=== PATIENT | male | born 1940 | race Caucasian/White ===

== ENCOUNTER 2023-06-09 21:00 | Emergency (ER) | payer MEDICARE, SELFPAY ==
[2023-06-09 21:20] VITALS: BP 108/41; PULSE 56; RESP 12; TEMP 36.5; O2SAT 94; BMI 26.6
--- NOTE | 2023-06-09 22:55 | ED.MALEGU ---
HPI - Male Genitourinary General Chief complaint: Urogenital-Male Stated complaint: ?UTI Time Seen by Provider: 06/09/23 22:55 Source: patient Mode of arrival: ambulatory Limitations: no limitations History of Present Illness HPI Narrative: Patient complaining of dysuria frequency for last few hours does not get infections very often no fever no nausea no vomiting had some chills at home no abdominal pain no issues with prostate Related Data Previous Rx's Medication Instructions Recorded cefuroxime axetil 250 mg tablet 250 mg PO BID 7 days #14 tabs 06/10/23 phenazopyridine 200 mg tablet 200 mg PO TID 2 days #5 tabs 06/10/23 (Pyridium) Allergies Allergy/AdvReac Type Severity Reaction Status Date / Time No Known Allergies Allergy Verified 06/09/23 21:20 Review of Systems Review of Systems: Yes all other systems are reviewed and are negative [facility] Social History Social History Alcohol intake: current Alcohol intake frequency: 0-2 drinks per day Alcohol type: beer Smoked in Last 30 Days: No Use of substances other than those prescribed or required for medical reasons: No Advance Directives: No Advance Directives Information Provided: Yes Physical Exam Vital Signs: Vital Signs: Last Vital Signs Temp 97.8 F 06/10/23 00:04 Pulse 59 06/10/23 00:04 Resp 16 06/10/23 00:04 BP 126/58 L 06/10/23 00:14 Pulse Ox 98 06/10/23 00:04 O2 Del Method Room Air 06/10/23 00:04 BMI result Body Mass Index 26.6 Appearance: Alert. Oriented X3. No acute distress. Hard of hearing ENT: Pharynx normal. Oral Mucosa moist Neck: Normal inspection. Neck supple. CVS: Normal heart rate and rhythm. Pulses normal. Respiratory: No respiratory distress. Equal air entry bilateral, Abdomen: Soft and nontender. Bowel sounds are present, no mass palpable, no CVA tenderness Skin: Skin warm and dry. Normal skin color. Normal skin turgor. Extremities: No lower extremity edema. Neuro: Oriented X 3. Medications Administered Discontinued Medications Generic Name Dose Route Start Last Admin Trade Name Freq PRN Reason Stop Dose Admin Cefuroxime Axetil 500 mg 06/09/23 23:21 06/10/23 00:03 Cefuroxime Axetil 500 Mg Tablet PO 06/09/23 23:22 500 mg ONCE ONE Administration Phenazopyridine HCl 200 mg 06/09/23 23:21 06/10/23 00:03 Phenazopyridine Hcl 200 Mg Tablet PO 06/09/23 23:22 200 mg ONCE ONE Administration Medical Decision Making Medical Decision Making [facility] Narrative: Patient has uncomplicated UTI with no history of infection in the past had stable labs which were done last week per family no history of kidney disease urine showed UTI will start on Ceftin and Pyridium patient does not have prostate issues Differential Diagnosis Differential Diagnoses: The differential diagnosis associated with the presentation includes UTI/prostatitis Lab Data [facility] Lab Attestation statement: I reviewed the patient's lab results. Labs: Lab Results 06/10/23 Range/Units 00:01 Urine Color Yellow Urine Appearance Cloudy Urine pH 5.5 (5.0-9.0) Ur Specific [place] 1.010 (1.005-1.025) Urine Protein 30 (1+) H (Neg-Trace) mg/dL Urine Glucose (UA) Negative (Negative) mg/dL Urine Ketones Negative (Negative) mg/dL Urine Blood Large (3+) H (Negative) Urine Nitrite Negative (Negative) Ur Leukocyte Esterase Large (3+) H (Negative) Urine RBC >20 H (0-2) /HPF Urine WBC >50 H (0-5) /HPF Ur Squamous Epith Cells 0-2 (0-2) /HPF Urine Bacteria None Seen (None Seen) Hyaline Casts 3-5 (0-2) /LPF Discharge Plan Discharge Clinical Impression: Urinary tract infection Patient Disposition: Home, Self-Care Instructions: Urinary Tract Infection in Men (ED) Additional Instructions: Drink plenty of fluid Take antibiotics as prescribed Report to the ER if high fever/vomiting/flank pain Prescriptions: New cefuroxime axetil 250 mg tablet 250 mg PO BID 7 Days Qty: 14 0RF phenazopyridine [Pyridium] 200 mg tablet 200 mg PO TID 2 Days Qty: 5 0RF Interventions: ED Discharge Assessment Last Done: 06/10/23 01:07 Discharge Date/Time: 06/10/23 01:08
[2023-06-10] MEDS: cefuroxime axetiL 500 MG TABLET PO (00:03)
[2023-06-10] MEDS: Phenazopyridine HCL 200 MG TABLET PO (00:03)
[2023-06-10 00:04] VITALS: BP 134/30; PULSE 59; RESP 16; TEMP 36.6; O2SAT 98
[2023-06-10 00:14] VITALS: BP 126/58
[2023-06-10 00:35] LABS: Appearance Urine Cloudy; Color Urine Yellow; Glucose Urine UA Negative (Negative); Leukocyte Esterase Urine Large (3+) (Negative); Nitrite Urine Negative (Negative); PH 5.5 (5.0-9.0); UMIC TRIGGER UACC YES; Urine Blood Large (3+) (Negative); Urine Ketones Negative (Negative); Urine Protein 30 (1+) mg/dL (Neg-Trace)
[2023-06-10 00:50] LABS: Bacteria Urine None Seen (None Seen); RBC Urine >20 /HPF (0-2); Squamous Epithelial Cell Urine 0-2 /HPF (0-2); UACC Culture Trigger YES; WBC Urine >50 /HPF (0-5)
== END 2023-06-10 01:08 | disposition home or self-care (01) ==
PROVIDERS: Emergency Provider Internal Medicine; PCP Hospitalist
DX: N39.0 Urinary tract infection, site not specified (principal)
CPT/HCPCS: 81001; 87086; 99283; 99284

== ENCOUNTER 2024-09-15 22:17 | Emergency (ER) | payer MEDICARE, SELFPAY ==
[2024-09-15 22:21] VITALS: BP 141/56; PULSE 63; RESP 22; TEMP 36.6; O2SAT 97; BMI 24.0
[2024-09-15 22:52] VITALS: BP 183/70; PULSE 54; RESP 19; O2SAT 99
[2024-09-15 23:14] LABS: MANUAL DIFF FLAG NO
[2024-09-15 23:15] LABS: Basophils Percent Auto 0.6 % (0-2); Eosinophils Absolute Auto 0.1 X10*3/uL (0.0-0.4); Eosinophils Percent Auto 0.9 % (0-4); Hematocrit 35.7 % (42.0-52.0); Hemoglobin 11.9 g/dl (14.0-18.0); Imm Gran Abs Auto 0.01 X10*3/uL (0.00-0.03); Imm Gran Pct Auto 0.2 % (0.0-0.4); Lymphocytes Absolute Auto 0.8 X10*3/uL (1.2-4.9); Lymphocytes Percent Auto 13.8 % (20-40); Mean Corpuscular HGB Conc 33.3 g/dl (31.0-36.0); Mean Corpuscular Hemoglobin 28.3 pg (27.0-33.0); Mean Corpuscular Volume 84.8 fL (80.0-98.0); Monocytes Absolute Auto 0.7 X10*3/uL (0.1-1.2); Monocytes Percent Auto 12.5 % (2-11); Neutrophils Absolute Auto 3.9 x10*3/uL (2.0-8.3); Platelet Count 105 X10*3/uL (160-400); Red Blood Count 4.21 X10*6/uL (4.60-5.80); Red Cell Distribution Width 14.6 % (11.0-16.0); White Blood Count 5.5 X10*3/uL (4.8-10.8)
--- NOTE | 2024-09-15 23:20 | ED_ITS ---
HPI - Medical Clearance General Chief complaint: Medical Clearance Stated complaint: withdrawal symptoms Time Seen by Provider: 09/15/24 23:19 Source: patient Mode of arrival: ambulatory Limitations: no limitations History of Present Illness ED Provider: HPI Narrative: Patient alcoholic stop drinking alcohol 1 week ago cold turkey certain feeling more anxious patient does have history of anxiety taking alprazolam 0.5 mg 3 times a day which is not even helping him patient is unable to ambulate because of tremulous feeling unable to sleep denies any DTs or seizures Related Information Home Medications ?Medication ?Instructions ?Recorded ?Confirmed alprazolam 0.5 mg tablet 0.5 mg PO BID 09/16/24 09/16/24 clopidogrel 75 mg tablet 75 mg PO DAILY 09/16/24 09/16/24 finasteride 5 mg tablet 5 mg PO DAILY 09/16/24 09/16/24 furosemide 40 mg tablet 40 mg PO DAILY 09/16/24 09/16/24 lactulose 10 gram/15 mL oral 15 ml PO DAILY 09/16/24 09/16/24 solution pantoprazole 40 mg tablet,delayed 40 mg PO BID 09/16/24 09/16/24 release sertraline 100 mg tablet 100 mg PO BID 09/16/24 09/16/24 simvastatin 20 mg tablet 20 mg PO BEDTIME 09/16/24 09/16/24 trazodone 50 mg tablet 50 mg PO BEDTIME 09/16/24 09/16/24 Previous Rx's ?Medication ?Instructions ?Recorded chlordiazepoxide HCl 10 mg capsule 10 mg PO TID PRN withdrawal 09/16/24 symptoms 2 days #6 caps Allergies Allergy/AdvReac Type Severity Reaction Status Date / Time No Known Allergies Allergy Verified 09/15/24 22:30 Review of Systems 2 Review of Systems: Yes all other systems are reviewed and are negative PMFSH Social History Social History Alcohol intake: current Alcohol intake frequency: 3 or more drinks per day Alcohol type: beer and wine Use of substances other than those prescribed or required for medical reasons: No Advance Directives: No Advance Directives Information Provided: No Physical Exam 2 Vital Signs: Vital Signs: Last Vital Signs Temp 98.6 F 09/16/24 07:23 Pulse 51 09/16/24 07:23 Resp 15 09/16/24 07:23 BP 155/59 H 09/16/24 07:23 Pulse Ox 98 09/16/24 07:23 O2 Del Method Room Air 09/16/24 07:23 BMI result Body Mass Index 24.0 Appearance: Alert. Oriented X3. No acute distress. Tremulous anxious Eyes: PERRLA, No Nystagmus ENT: Pharynx normal. Oral Mucosa moist Neck: Normal inspection. Neck supple. CVS: Normal heart rate and rhythm. Pulses normal. Respiratory: No respiratory distress. Equal air entry bilateral, no wheezing/rales/rhonchi Abdomen: Soft and nontender. Bowel sounds are present, no mass palpable, no CVA tenderness Skin: Skin warm and dry. Normal skin color. Normal skin turgor. Extremities: No lower extremity edema. No calf tenderness Neuro: Oriented X 3. No motor deficit. No sensory deficit.No cerebellar signs , cranial nerves II-XII intact Medications Administered Discontinued Medications Generic Name Dose Route Start Last Admin Trade Name Freq PRN Reason Stop Dose Admin Sodium Chloride 1,000 mls @ 999 mls/hr 09/15/24 23:42 09/16/24 01:30 Ns IV 09/16/24 00:42 Infused .Q1H1M ONE Infusion Lorazepam 2 mg 09/15/24 23:41 09/16/24 00:04 Lorazepam 1 Mg Tablet PO 09/15/24 23:42 2 mg ONCE ONE Administration Thiamine HCl 50 mg 09/15/24 23:42 09/16/24 00:04 Thiamine Hcl 100 Mg Tablet PO 09/15/24 23:43 50 mg ONCE ONE Administration Medical Decision Making Medical Decision Making [facility] Narrative: Patient with anxiety alcohol use last drink 6 days ago still feel very anxious already on alprazolam at home family wants detox/psych evaluation for increased anxiety patient has says that has increased stress level at home for last 6 months and maybe contributing to his increased anxiety 08:43I, Dr. Emerson have take over the care of this patient, I reviewed pertinent blood work and imaging, re-evaluated the patient when appropriate., cleared from crisis, currently not really detoxing but anxious last drink 6 days ago, not indicated for medical detox, we will prescribe a few days' worth of benzodiazepines for discharge and will follow up with the PCP Differential Diagnosis Differential Diagnoses: The differential diagnosis associated with the presentation includes Lab Data [facility] Lab Attestation statement: I reviewed the patient's lab results. 09/15/24 23:06 09/15/24 23:06 Labs: Lab Results 09/15/24 09/15/24 09/16/24 Range/Units 23:06 23:08 00:21 WBC 5.5 (4.8-10.8) X10*3/uL RBC 4.21 L (4.60-5.80) X10*6/uL Hgb 11.9 L (14.0-18.0) g/dl Hct 35.7 L (42.0-52.0) % MCV 84.8 (80.0-98.0) fL MCH 28.3 (27.0-33.0) pg MCHC 33.3 (31.0-36.0) g/dl RDW 14.6 (11.0-16.0) % Plt Count 105 L (160-400) X10*3/uL MPV 12.0 (9.4-12.4) fL Immature Gran % (Auto) 0.2 (0.0-0.4) % Neut % (Auto) 72.0 (45-73) % Lymph % (Auto) 13.8 L (20-40) % [place] % (Auto) 12.5 H (2-11) % Eos % (Auto) 0.9 (0-4) % Baso % (Auto) 0.6 (0-2) % Lymph # (Auto) 0.8 L (1.2-4.9) X10*3/uL [place] # (Auto) 0.7 (0.1-1.2) X10*3/uL Eos # (Auto) 0.1 (0.0-0.4) X10*3/uL Baso # (Auto) 0.0 (0.0-0.2) X10*3/uL Abs Immat Gran (auto) 0.01 (0.00-0.03) X10*3/uL Absolute Neuts (auto) 3.9 (2.0-8.3) x10*3/uL Absolute Nucleated RBC 0.000 (0.0-0.012) X10*3/uL Nucleated RBC % (auto) 0.0 (0.0-0.2) /100WBC Sodium 145 (135-145) mmol/L Potassium 3.9 (3.3-5.1) mmol/L Chloride 110 H (96-108) mmol/L Carbon Dioxide 24 (22-29) mmol/L Anion Gap 15 (12-20) BUN 33 H (9-16) mg/dL Creatinine 1.33 (0.5-1.4) mg/dL Estim Creat Clear Calc 40.0 Estimated GFR 51 Random Glucose 108 (60-115) mg/dL Calcium 9.9 (8.4-10.2) mg/dL Magnesium 2.3 (1.6-2.6) mg/dL Total Bilirubin 0.3 (0.0-1.0) mg/dL AST 21 (5-37) U/L ALT 14 (0-40) U/L Alkaline Phosphatase 65 (39-117) U/L Total Protein 7.8 (6.5-8.0) g/dL Albumin 5.0 (3.5-5.0) g/dL Vitamin B12 347 (200-900) pg/mL Folate 12.4 (> or = 4.0) ng/mL Urine Color Yellow Urine Appearance Clear Urine pH 6.5 (5.0-9.0) Ur Specific [place] 1.015 (1.005-1.025) Urine Protein Negative (Neg-Trace) mg/dL Urine Glucose (UA) Negative (Negative) mg/dL Urine Ketones Negative (Negative) mg/dL Urine Blood Negative (Negative) Urine Nitrite Negative (Negative) Ur Leukocyte Esterase Negative (Negative) Urine RBC 0-2 (0-2) /HPF Urine WBC 0-5 (0-5) /HPF Ur Squamous Epith Cells 0-2 (0-2) /HPF Urine Bacteria None Seen (None Seen) Hyaline Casts 11-20 (0-2) /LPF Urine Opiates Screen Not Detected (Not Detect) Ur Buprenorphine Scrn Not Detected (Not Detect) ng/mL Ur Oxycodone Screen Not Detected (Not Detect) ng/mL Urine Methadone Screen Not Detected (Not Detect) ng/mL Urine Fentanyl Screen Not Detected (Not Detect) Ur Barbiturates Screen Not Detected (Not Detect) Ur Phencyclidine Scrn Not Detected (Not Detect) Ur Amphetamines Screen Not Detected (Not Detect) U Benzodiazepines Scrn POSITIVE H (Not Detect) Urine Cocaine Screen Not Detected (Not Detect) U Marijuana (THC) Screen Not Detected (Not Detect) Ethyl Alcohol < 10 mg/dL Discharge Plan Discharge Clinical Impression: Alcohol withdrawal, Anxiety Patient Disposition: Still a Patient Additional Instructions: You have taken benzodiazepines in the past, medication provide any Librium 10 mg you can take every 8 hours needed for withdrawal like symptoms anxiety, it is a longer acting medication, you can take either full pill a half a pill, do not mix with any other medications for anxiety or sedating medications that you may have, did not mix with alcohol for sure, this is a big fall risk, follow up with the PCP for additional medications, you have stopped drinking 6 days ago at this point you are not going to go through medically significant alcohol withdrawals, you are past that point. Prescriptions: New chlordiazepoxide HCl 10 mg capsule 10 mg PO TID PRN (Reason: withdrawal symptoms) 2 Days Qty: 6 0RF No Action furosemide 40 mg tablet 40 mg PO DAILY trazodone 50 mg tablet 50 mg PO BEDTIME sertraline 100 mg tablet 100 mg PO BID clopidogrel 75 mg tablet 75 mg PO DAILY alprazolam 0.5 mg tablet 0.5 mg PO BID pantoprazole 40 mg tablet,delayed release (DR/EC) 40 mg PO BID simvastatin 20 mg tablet 20 mg PO BEDTIME finasteride 5 mg tablet 5 mg PO DAILY lactulose 10 gram/15 mL solution 15 ml PO DAILY Referrals: Stevie Floyd MD [Primary Care Provider] - Print Language: [place]
[2024-09-15 23:31] LABS: Alanine Aminotransferase 14 U/L (0-40); Alkaline Phosphatase 65 U/L (39-117); Anion Gap 15 (12-20); Aspartate Amino Transferase 21 U/L (5-37); Bilirubin Total 0.3 mg/dL (0.0-1.0); Blood Urea Nitrogen 33 mg/dL (9-16); Calcium 9.9 mg/dL (8.4-10.2); Carbon Dioxide 24 mmol/L (22-29); Chloride 110 mmol/L (96-108); Estimated Glomerular Filt Rate 51; Ethanol < 10 mg/dL; Glucose Random 108 mg/dL (60-115); Potassium 3.9 mmol/L (3.3-5.1); Sodium 145 mmol/L (135-145); Total Protein 7.8 g/dL (6.5-8.0)
[2024-09-15 23:48] LABS: Appearance Urine Clear; Color Urine Yellow; Glucose Urine UA Negative (Negative); Leukocyte Esterase Urine Negative (Negative); Nitrite Urine Negative (Negative); PH 6.5 (5.0-9.0); Specific Gravity - Urine 1.015 (1.005-1.025); Urine Blood Negative (Negative); Urine Ketones Negative (Negative); Urine Protein Negative (Neg-Trace)
[2024-09-15 23:59] LABS: Amphetamine Screen Urine Not Detected (Not Detect); Barbiturates, Urine Not Detected (Not Detect); Benzodiazepines Screen Urine POSITIVE (Not Detect); Buprenorphine Scr Not Detected (Not Detect); Cannabinoid Screen Urine Not Detected (Not Detect); Cocaine Screen Urine Not Detected (Not Detect); Fentanyl, urine Not Detected (Not Detect); Methadone Screen, Urine Not Detected (Not Detect); Opiate Screen Urine Not Detected (Not Detect); Oxycodone Screen Urine Not Detected (Not Detect); Phencyclidine Screen Urine Not Detected (Not Detect)
[2024-09-16 00:01] LABS: Bacteria Urine None Seen (None Seen); RBC Urine 0-2 /HPF (0-2); Squamous Epithelial Cell Urine 0-2 /HPF (0-2); WBC Urine 0-5 /HPF (0-5)
[2024-09-16] MEDS: 0.9 % Sodium Chloride 1,000 ML 999 ML IV (00:04)
[2024-09-16] MEDS: Thiamine HCL 100 MG TABLET 50 MG PO (00:04)
[2024-09-16] MEDS: LORazepam 1 MG TABLET 2 MG PO (00:04)
[2024-09-16 00:08] LABS: Magnesium 2.3 mg/dL (1.6-2.6)
[2024-09-16 01:17] LABS: Folate 12.4 ng/mL (> or = 4.0); Vitamin B12 347 pg/mL (200-900)
[2024-09-16 07:23] VITALS: BP 155/59; PULSE 51; RESP 15; TEMP 37; O2SAT 98
--- NOTE | 2024-09-16 07:40 | PC.NURSE ---
84 M presents to ED wanting to be treated for alcohol withdrawal. Pt sts last drink 1 week ago, normally drinks 5-6 beers a day along with a couple glasses of wine. Pt has visible treamore, complains of moderate headache but denies any other pain. Pt denies any hallucinations. A+Ox4. RR even and unlabored, denies SOB.
--- NOTE | 2024-09-16 08:53 | PHA.MEDREC ---
Pharmacy Consult ? Medication Reconciliation Pharmacy has reviewed the medication reconciliation done by nursing and added in tamsulosin since there are consistent pharmacy claims for it.
[2024-09-16 09:22] VITALS: BP 155/59; PULSE 51; RESP 15; TEMP 37; O2SAT 98
--- NOTE | 2024-09-16 09:43 | MHC.CARE ---
Pt does not meet criteria for a higher level of care and is declining detox at this time. Pt will D/C home with medications for potential ETOH withdrawl and follow up with PCP.
== END 2024-09-16 09:10 | disposition still patient (30) ==
PROVIDERS: Emergency Provider Internal Medicine; PCP Hospitalist
DX: F10.230 Alcohol dependence with withdrawal, uncomplicated (principal); Y90.0 Blood alcohol level of less than 20 mg/100 ml; F41.9 Anxiety disorder, unspecified; G25.2 Other specified forms of tremor; Z79.899 Other long term (current) drug therapy
CPT/HCPCS: 36415; 80053; 80307; 81001; 82607; 82746; 83735; 85025; 96360; 99285; S9485